=== PATIENT | male | born 1950 ===

== ENCOUNTER 2022-02-14 08:56 | Day surgery (SDC) | payer MEDICARE ==
[~2022-02-14] VITALS: Ht 175.3 cm; Wt 76.3 kg
[2022-02-14] MEDS ORDERED: DYAZIDE 25 MG-31 CAP PO (09:24)
[2022-02-14] MEDS ORDERED: ZOCOR 10MG10 MG PO (09:24)
[2022-02-14] MEDS ORDERED: MULTI VITAMINS1 TAB PO (09:25)
[2022-02-14 11:30] VITALS: BP 112/78; PULSE 64; TEMP 98.4
[2022-02-14 11:45] VITALS: BP 119/72; PULSE 62
[2022-02-14 12:00] VITALS: BP 113/94; PULSE 61
--- NOTE | 2022-02-14 12:05 | NUR ---
1130 PT RETURNED TO [facility] VIA CART. TRANSFERED TO CHAIR WITH RN ASSIST. ALERT AND ORIENTED. MONITORS ATTACHED, INTERVALS AND ALARMS SET. PT DENIES PAIN OR NAUSEA. PT REFUSED FOOD, AGREED TO TRY SPRITE. 1145 PT TOLERATING FOOD AND DRINK WELL. VSS. IN TO SPEAK WITH PT. 1200 REVIEWED DISCHARGE INSTRUCTIONS AND EDUCATION MATERIAL, ANSWERED ALL QUESTIONS. PT ALLOWED TO DRESS. 1210 PT TRANSFERED TO PERSONAL VEHICLE VIA WHEELCHAIR TO BE DRIVEN HOME BY . PT REMINDED NOT TO DRIVE FOR 12 HOURS.
== END 2022-02-14 12:10 | disposition home or self-care (01) ==
LOC: SDCO 08:56
DX: Z12.11 Encounter for screening for malignant neoplasm of colon (principal); D12.4 Benign neoplasm of descending colon; D12.8 Benign neoplasm of rectum; K57.30 Diverticulosis of large intestine without perforation or abscess without bleeding; K64.0 First degree hemorrhoids
CPT/HCPCS: J2704; J7120